=== PATIENT | male | born 1960 | race Caucasian/White ===

== ENCOUNTER → 2016-10-28 | Outpatient (REF) | payer MEDICARE, MEDICAID ==
[~2016-10-28] MED LIST: /PRAV20TA PO; ACET65TA OR; AMLO10TA2 PO; AMLO10TAB PO; CALC1SOL PO; CALC667C2 PO; COZA100T OR; COZA50TA18 OR; DRIS1CAP PO; DRISDOL PO; FELDENE PO; FELO10TA OR; FELO5TAB OR; FOLI1TAB OR; FOLI1TAB86 PO; FOSR1000 PO; FOSRENOL PO; HEPA50VL SC; HYDR25TA7 OR; LANTHANUM CARBONATE PO; LISI10TA4 OR; LOPR100T PO; METOP; METOPROLOL PO; NEPH1CAP4 PO; OMEP20TA7 PO; PERC5TAB8 OR; PHOSLO667 MG OR; RENVELA PO; REST15CA OR; REST30CA PO; ROCALTROL PO; SENS60TA PO; SENSIPAR PO; TEMA30CA PO; TYLE325T5 PO; Theragran PO; VITAMIN B6 PO; ZITH250T PO; ZOVI800T OR; [UNRECOGNIZED DRUG - OTHER] PO
== END ==
LOC: M LAB REF 12:51
PROVIDERS: ATTEND Internal Medicine Nephrology
DX: Z94.0 Kidney transplant status (principal)

== ENCOUNTER → 2016-12-22 | Outpatient (REF) | payer MEDICARE, MEDICAID | LOC: M LAB REF 13:40 | PROVIDERS: ATTEND Internal Medicine Nephrology | DX: Z94.0 Kidney transplant status (principal) ==

== ENCOUNTER → 2017-01-20 | Outpatient (REF) | payer MEDICARE, MEDICAID ==
[2017-01-20 18:58] LABS: PERCENT SATURATION 24.6 % (19.7-50.0)
== END ==
LOC: M LAB REF 13:07
PROVIDERS: ATTEND Internal Medicine Medical Oncology
DX: E83.119 Hemochromatosis, unspecified (principal)

== ENCOUNTER → 2017-04-20 | Outpatient (REF) | payer MEDICARE, MEDICAID | LOC: M LAB REF 17:41 | PROVIDERS: ATTEND Internal Medicine Nephrology | DX: Z94.0 Kidney transplant status (principal) ==

== ENCOUNTER → 2017-10-19 | Outpatient (REF) | payer MEDICARE, MEDICAID ==
[2017-10-22 00:11] LABS: FK 506 (TACROLIMUS) LABCORP 3.5 ng/mL (2.0-20.0)
== END ==
LOC: M LAB REF 13:54
DX: Z94.0 Kidney transplant status (principal)
CPT/HCPCS: 80197

== ENCOUNTER → 2018-01-21 | Outpatient (REF) | payer MEDICARE, MEDICAID ==
[2018-01-21 14:52] LABS: CHOLESTEROL LEVEL 228 MG/DL (<200); CHOLESTEROL RISK RATIO 6.333 (<5); HDL CHOLESTEROL 36 MG/DL (>40); LDL CHOLESTEROL 141.8 MG/DL (<100); NON-HDL-C 192 MG/DL; TRIGLYCERIDES LEVEL 251 MG/DL (<150)
[2018-01-23 14:50] LABS: FK 506 (TACROLIMUS) LABCORP 5.3 ng/mL (2.0-20.0)
== END ==
LOC: M LAB REF 13:59
DX: Z94.0 Kidney transplant status (principal); E78.2 Mixed hyperlipidemia
CPT/HCPCS: 80061

== ENCOUNTER → 2018-06-15 | Outpatient (REF) | payer MEDICARE, MEDICAID ==
[~2018-06-15] MED LIST changes: +AMLO10TA5 PO; +ASPI1TAB PO; +CALC1CAP31 PO; +KPHOS50TA PO; +LISI-538 PO; +MAGN200T PO; +METO1TAB33 PO; +MYCO500T PO; +RANI150C PO; +SENS90TA PO; +TACR1CAP3 PO
[2018-06-15 14:30] LABS: CHOLESTEROL RISK RATIO 6.447 (<5)
== END ==
LOC: M LAB REF 14:01
PROVIDERS: ATTEND Internal Medicine Nephrology
DX: Z94.0 Kidney transplant status (principal); E78.2 Mixed hyperlipidemia

== ENCOUNTER → 2018-09-22 | Outpatient (REF) | payer MEDICARE, MEDICAID ==
[~2018-09-22] MED LIST changes: -/PRAV20TA PO; +ACYC-1 OR; -ASPI1TAB PO; +ASPI81TA26 PO; +HEPA500020 SC; -HEPA50VL SC; +PRAV1TAB39 PO; -ZOVI800T OR
== END ==
LOC: M LAB REF 13:29
PROVIDERS: ATTEND Internal Medicine Nephrology
DX: Z94.0 Kidney transplant status (principal)

== ENCOUNTER → 2019-03-25 | Outpatient (REF) | payer MEDICARE ==
[~2019-03-25] MED LIST changes: +ATOR80TA59 PO; +CLOP75TA2 PO; +FAMO20TA PO; +METO25TA4 PO
[2019-03-25 13:25] LABS: CHOLESTEROL RISK RATIO 3.783 (<5)
== END ==
LOC: M LAB REF 12:39
PROVIDERS: ATTEND Internal Medicine Nephrology
DX: Z94.0 Kidney transplant status (principal); E78.2 Mixed hyperlipidemia

== ENCOUNTER 2019-06-07 08:45 | Outpatient (CLI) | payer MEDICAID, MEDICARE ==
[~2019-06-07] VITALS: Ht 175.3 cm; Wt 87.5 kg
[~2019-06-07 08:45] MED LIST changes: +MYCO250C PO
[2019-06-07 09:00] VITALS: BP 162/91
[2019-06-07 09:45] VITALS: BP 136/90
== END 2019-06-07 09:45 | disposition home or self-care (01) ==
LOC: M INFU 08:45
PROVIDERS: ATTEND Internal Medicine Hematology
DX: E83.119 Hemochromatosis, unspecified (principal); Z88.8 Allergy status to other drugs, medicaments and biological substances; Z91.013 Allergy to seafood

== ENCOUNTER 2019-06-21 08:46 | Outpatient (CLI) | payer MEDICARE ==
[~2019-06-21] VITALS: Ht 175.3 cm; Wt 87.5 kg
[2019-06-21 08:59] VITALS: BP 159/91
[2019-06-21 09:15] VITALS: BP 122/83
== END 2019-06-21 09:15 | disposition home or self-care (01) ==
LOC: M INFU 08:46
PROVIDERS: ATTEND Internal Medicine Hematology
DX: E83.119 Hemochromatosis, unspecified (principal); Z88.1 Allergy status to other antibiotic agents; Z91.013 Allergy to seafood

== ENCOUNTER → 2019-07-26 | Outpatient (REF) | payer MEDICARE ==
[2019-07-26 13:44] LABS: ALBUMIN 3.7 GM/DL (3.2-5.2); ALT/SGPT 11 U/L (12-78); BILIRUBIN,DIRECT 0.2 MG/DL (0.0-0.2); BILIRUBIN,TOTAL 0.5 MG/DL (0.2-1.0); TOTAL PROTEIN 6.7 GM/DL (6.4-8.2)
== END ==
LOC: M LAB REF 13:02
PROVIDERS: ATTEND Nurse Practitioner Family
DX: Z94.0 Kidney transplant status (principal)

== ENCOUNTER → 2019-11-28 | Outpatient (CLI) | payer MEDICARE, MEDICAID ==
[~2019-11-28] MED LIST changes: -AMLO10TA5 PO; +AMLO1TAB25 PO; +LISI10TA4 PO
--- NOTE | 2019-11-28 14:15 | REP ---
PARATHYROID NUCLEAR SCINTIGRAPHY WITH SPECT: HISTORY: Hyperparathyroidism. Comparison study is from April 10, 2016. TECHNIQUE: 27.4 mCi of technetium 99m sestamibi is injected. 15-minute and 3-hour delayed planar images are acquired of the neck and chest region. A SPECT acquisition is acquired as well. SCINTIGRAPHIC FINDINGS: 15-minute delayed images demonstrate expected salivary and thyroid uptake. Thyroid glandular uptake washes out on delayed scan images. No focal area of retained uptake is seen in the neck or mediastinum to suggest adenoma. Axial, coronal, and sagittal SPECT imaging shows no additional finding. IMPRESSION: Negative parathyroid nuclear scintigraphy. Electronically Signed by Jeremy Mathis MD 11/28/2019 02:48 P
== END ==
LOC: M RAD 09:31
PROVIDERS: ATTEND Nurse Practitioner Family
DX: N25.81 Secondary hyperparathyroidism of renal origin (principal); E83.52 Hypercalcemia
CPT/HCPCS: 78803; A9500

== ENCOUNTER → 2020-01-31 | Outpatient (REF) | payer MEDICARE ==
[2020-01-31 20:03] LABS: FREE T4 1.05 NG/DL (0.76-1.46); THYROID STIMULATING HORMONE 1.72 uIU/ML (0.358-3.740)
== END ==
LOC: M LAB REF 08:56
PROVIDERS: ATTEND Nurse Practitioner Family
DX: R53.83 Other fatigue (principal); Z94.0 Kidney transplant status

== ENCOUNTER → 2020-02-14 | Outpatient (CLI) | payer MEDICARE, MEDICAID ==
--- NOTE | 2020-02-29 08:01 | REP ---
TRANSPLANT KIDNEY ULTRASOUND HISTORY: Right lower quadrant renal transplant. Acute kidney failure. COMPARISON: 04/10/2016. SONOGRAPHIC FINDINGS: Scanning of the right iliac fossa demonstrates morphologically intact right renal transplant measuring 11.3 x 6.3 x 6.2 cm in overall dimension. There is no evidence of hydronephrosis, cyst, or mass. Previous length measurement was 10.8 cm. DOPPLER ASSESSMENT: Pre-anastomotic iliac artery Doppler peak systolic flow velocity is 150 cm/s. Main renal artery at the level of the anastomosis has a PSV of 151 cm/s. Mid transplant right renal artery peak systolic flow velocity is 131 cm/s and at the hilum 25 cm/s. The transplant renal vein is widely patent. Resistive indices are measured in the upper mid and lower third of the transplant kidney and these values are normal at 0.62, 0.63, and 0.54 respectively. IMPRESSION: No evidence of main renal artery stenosis. Somewhat decreased flow in the hilar vessels, 25 cm/s flow velocity. No hydronephrosis. Normal renal cortical echogenicity. MTDD
== END ==
LOC: M RAD 11:05
PROVIDERS: ATTEND Nurse Practitioner Family
DX: Z94.0 Kidney transplant status (principal); N17.9 Acute kidney failure, unspecified

== ENCOUNTER → 2020-03-01 | Outpatient (REF) | payer MEDICARE, MEDICAID | LOC: M LAB REF 17:02 | PROVIDERS: ATTEND Nurse Practitioner Family | DX: Z94.0 Kidney transplant status (principal) ==

== ENCOUNTER → 2020-04-04 | Outpatient (REF) | payer MEDICARE, MEDICAID | LOC: M LAB REF 17:12 | PROVIDERS: ATTEND Nurse Practitioner Family | DX: Z94.0 Kidney transplant status (principal) ==

== ENCOUNTER → 2020-06-05 | Outpatient (REF) | payer MEDICARE | LOC: M LAB REF 17:13 | PROVIDERS: ATTEND Internal Medicine Nephrology | DX: Z94.0 Kidney transplant status (principal) ==

== ENCOUNTER → 2020-08-03 | Outpatient (REF) | payer MEDICARE ==
[~2020-08-03] MED LIST changes: -LISI-538 PO; +LISI10TA22 PO; -LISI10TA4 PO; +LISI20TA33 PO
== END ==
LOC: M LAB REF 16:39
PROVIDERS: ATTEND Nurse Practitioner Family
DX: Z94.0 Kidney transplant status (principal)

== ENCOUNTER → 2020-11-06 | Outpatient (REF) | payer MEDICARE ==
[2020-11-06 18:02] LABS: FREE T3 2.6 PG/ML (2.2-4.0); FREE T4 0.9 NG/DL (0.76-1.46); THYROID STIMULATING HORMONE 1.22 uIU/ML (0.358-3.740)
== END ==
LOC: M LAB REF 16:44
PROVIDERS: ATTEND Nurse Practitioner Family
DX: R53.83 Other fatigue (principal); Z94.0 Kidney transplant status

== ENCOUNTER → 2021-02-08 | Outpatient (REF) | payer MEDICARE ==
[~2021-02-08] MED LIST changes: +CINA30TA5 PO; +NOXI1TAB PO; +VITA400T15 PO
[2021-02-08 14:16] LABS: FREE T3 2.5 PG/ML (2.2-4.0); FREE T4 0.89 NG/DL (0.76-1.46); MAGNESIUM LEVEL 1.6 MG/DL (1.8-2.4); THYROID STIMULATING HORMONE 1.17 uIU/ML (0.358-3.740)
== END ==
LOC: M LAB REF 12:59
PROVIDERS: ATTEND Nurse Practitioner Family
DX: Z94.0 Kidney transplant status (principal); R53.83 Other fatigue; E83.42 Hypomagnesemia

== ENCOUNTER → 2021-04-16 | Outpatient (REF) | payer MEDICARE | LOC: M LAB REF 13:24 | PROVIDERS: ATTEND Nurse Practitioner Family | DX: E83.42 Hypomagnesemia (principal); Z94.0 Kidney transplant status ==

== ENCOUNTER → 2021-07-18 | Outpatient (REF) | payer MEDICARE | LOC: M LAB REF 16:43 | PROVIDERS: ATTEND Nurse Practitioner Family | DX: E83.42 Hypomagnesemia (principal) ==

== ENCOUNTER → 2021-11-13 | Outpatient (REF) | payer MEDICARE ==
[2021-11-13 18:09] LABS: TOTAL PROTEIN,RANDOM URINE 28.5 MG/DL (0.0-12.0)
== END ==
LOC: M LAB REF 17:20
PROVIDERS: ATTEND Nurse Practitioner Family
DX: Z94.0 Kidney transplant status (principal)

== ENCOUNTER → 2021-12-31 | Outpatient (CLI) | payer MEDICARE ==
[~2021-12-31] MED LIST changes: +ISOVUE-370 76% 100ML VIAL As Ordered ONE
== END ==
LOC: M RAD 16:22
PROVIDERS: ATTEND Nurse Practitioner Family
DX: R91.8 Other nonspecific abnormal finding of lung field (principal); N62 Hypertrophy of breast
CPT/HCPCS: 71260; Q9967

== ENCOUNTER → 2022-02-13 | Outpatient (REF) | payer MEDICARE ==
[~2022-02-13] MED LIST changes: -ISOVUE-370 76% 100ML VIAL As Ordered ONE
== END ==
LOC: M LAB REF 16:39
PROVIDERS: ATTEND Nurse Practitioner Family
DX: Z94.0 Kidney transplant status (principal)

== ENCOUNTER → 2022-03-13 | Outpatient (REF) | payer MEDICARE | LOC: M LAB REF 16:57 | PROVIDERS: ATTEND Nurse Practitioner Family | DX: Z94.0 Kidney transplant status (principal) ==

== ENCOUNTER → 2022-06-24 | Outpatient (REF) | payer MEDICARE | LOC: M LAB REF 17:14 | PROVIDERS: ATTEND Nurse Practitioner Family | DX: Z94.0 Kidney transplant status (principal) ==

== ENCOUNTER → 2022-09-23 | Outpatient (REF) | payer MEDICARE | LOC: M LAB REF 17:10 | PROVIDERS: ATTEND Nurse Practitioner Family | DX: Z94.0 Kidney transplant status (principal) ==